=== PATIENT | female | born 2000 | race Asian ===

== ENCOUNTER 2023-04-01 18:42 | Emergency (ER) | payer OTHER ==
[~2023-04-01] VITALS: Ht 162.6 cm; Wt 44.0 kg
[2023-04-01 19:21] VITALS: BP 127/69
[2023-04-01] MEDS ORDERED: FLONAS NS (21:25)
[2023-04-01] MEDS ORDERED: PROM118S5 PO (21:25)
--- NOTE | 2023-04-01 21:52 | NUR ---
Pt seen evaluated by ALEJANDRA
--- NOTE | 2023-04-01 21:52 | NUR ---
Patient discharged with v/s stable. Written and verbal after care instructions given and explained. New rx flonase, and promethazine DM Patient verbalized understanding. Ambulatory with steady gait. All questions addressed prior to discharge. Advised to follow up with PMD.
[2023-04-01 21:54] VITALS: BP 127/69
== END 2023-04-01 21:52 | disposition home or self-care (01) ==
LOC: MED 18:42
DX: J06.9 Acute upper respiratory infection, unspecified (principal); Z79.899 Other long term (current) drug therapy
CPT/HCPCS: 99283